=== PATIENT | female | born 1995 | race American Indian/Alaskan Native ===

== ENCOUNTER 2018-02-17 15:39 | Emergency (ER) | payer MEDICAID ==
--- NOTE | 2018-02-17 16:06 | EDM.PDOC ---
ED HPI GENERAL MEDICAL PROBLEM - General Chief Complaint: Respiratory Problem Stated Complaint: cough, sore throat Time Seen by Provider: 02/17/18 15:52 Source of Information: Reports: Patient History Limitations: Reports: No Limitations - History of Present Illness INITIAL COMMENTS - FREE TEXT/NARRATIVE: Patient reports having illness for the last 3 days. She reports cough with sputum production, she reports fever, though is afebrile here, she also describes nausea and vomiting. She is a 1/2-1 PPD smoker. She denies recent contact with anyone that is ill. She denies chest pain, SOB, headache, has sinus pressure. She denies abdominal pain. She is not having any urinary symptoms and is voiding normally. Regular bowel movements. She is diaphoretic in the exam room. Onset: Gradual Onset Date: 02/14/18 Duration: Intermittent Location: Reports: Head, Neck, Chest Associated Symptoms: Reports: cough w sputum, Nausea/Vomiting ED ROS GENERAL - Review of Systems Review Of Systems: See Below Constitutional: Reports: Fever, Diaphoresis HEENT: Reports: Throat Pain Respiratory: Reports: Cough, Sputum Cardiovascular: Reports: No Symptoms Endocrine: Reports: No Symptoms GI/Abdominal: Reports: Nausea, Vomiting : Reports: No Symptoms Musculoskeletal: Reports: No Symptoms Skin: Reports: No Symptoms Neurological: Reports: No Symptoms Psychiatric: Reports: No Symptoms Hematologic/Lymphatic: Reports: No Symptoms Immunologic: Reports: No Symptoms ED EXAM, GENERAL - Physical Exam Exam: See Below Exam Limited By: No Limitations General Appearance: Alert, WD/WN, No Apparent Distress Eye Exam: Bilateral Eye: EOMI, Normal Inspection, PERRL Ears: Normal TMs Nose: Normal Inspection, Normal Mucosa, No Blood Throat/Mouth: Normal Inspection, Normal Lips, Normal Teeth, Normal Gums, Normal Oropharynx, Normal Voice, No Airway Compromise Head: Atraumatic, Normocephalic Neck: Normal Inspection, Supple, Non-Tender, Full Range of Motion Respiratory/Chest: No Respiratory Distress, Lungs Clear, Normal Breath Sounds, No Accessory Muscle Use, Chest Non-Tender Cardiovascular: Normal Peripheral Pulses, Regular Rate, Rhythm, No Edema, No Gallop, No JVD, No Murmur, No Rub GI/Abdominal: Normal Bowel Sounds, Soft, Non-Tender, No Organomegaly, No Distention, No Abnormal Bruit, No Mass Extremities: Normal Inspection, Normal Range of Motion, Non-Tender, Normal Capillary Refill, No Pedal Edema Neurological: Alert, Oriented, CN II-XII Intact, Normal Cognition, Normal Gait, Normal Reflexes, No Motor/Sensory Deficits Psychiatric: Normal Affect, Normal Mood Skin Exam: Warm, Dry, Intact, Normal Color, No Rash Lymphatic: No Adenopathy Course - Orders/Labs/Meds Orders: Active Orders 24 hr Category Date Time Status STREP SCRN A RAPID W CULT CONF [RM] Stat Lab 02/17/18 15:52 Ordered - Re-Assessments/Exams Free Text/Narrative Re-Assessment/Exam: 02/17/18 16:32 Rapid strep negative. Culture pending Departure - Departure Time of Disposition: 16:25 Disposition: Home, Self-Care 01 Condition: Good Clinical Impression: Acute bronchiolitis - Discharge Information *PRESCRIPTION DRUG MONITORING PROGRAM REVIEWED*: Not Applicable *COPY OF PRESCRIPTION DRUG MONITORING REPORT IN PATIENT RINKU: Not Applicable Instructions: Upper Respiratory Infection, Adult, [id number], Steps to Quit Smoking, [id number] Forms: ED Department Discharge Additional Instructions: Your rapid strep result is negative. We will run a culture and if it is positive we will call you with an antibiotic to take. You likely have an acute viral illness and I have included education for you to read on OTC preparations to use. I have also included information for smoking cessation. You are more likely to have respiratory infections and you also increase your son's risk at having respiratory infections due to second hand smoke exposure. Please call the ER if you have any questions or concerns. - Problem List & Annotations (1) Acute bronchiolitis SNOMED Code(s): 0596671 Code(s): J21.9 - ACUTE BRONCHIOLITIS, UNSPECIFIED Status: Acute Priority : Low Current Visit: Yes Qualifiers: Bronchiolitis organism: unspecified organism Qualified Code(s): J21.9 - Acute bronchiolitis, unspecified - Problem List Review Problem List Initiated/Reviewed/Updated: Yes - My Orders Last 24 Hours: My Active Orders 02/17/18 15:52 STREP SCRN A RAPID W CULT CONF [RM] Stat - Assessment/Plan Last 24 Hours: My Active Orders 02/17/18 15:52 STREP SCRN A RAPID W CULT CONF [RM] Stat Assessment:: bronchiolitis viral URI Plan: Your rapid strep result is negative. We will run a culture and if it is positive we will call you with an antibiotic to take. You likely have an acute viral illness and I have included education for you to read on OTC preparations to use. I have also included information for smoking cessation. You are more likely to have respiratory infections and you also increase your son's risk at having respiratory infections due to second hand smoke exposure. Please call the ER if you have any questions or concerns.
== END 2018-02-17 16:20 | disposition home or self-care (01) ==
LOC: VM.ED 15:39
DX: J21.9 Acute bronchiolitis, unspecified (principal); J06.9 Acute upper respiratory infection, unspecified; F17.210 Nicotine dependence, cigarettes, uncomplicated
CPT/HCPCS: 87081; 87880-QW; 99283